=== PATIENT | male | born 1955 | race Caucasian/White ===

== ENCOUNTER 2017-11-10 07:34 | Emergency (ER) | payer BC ==
--- NOTE | 2017-11-10 07:34 | NUR ---
called for triage, no answer
--- NOTE | 2017-11-10 07:43 | NUR ---
Attempted to triage pt, per ER admitting pt left and decided not to be seen.
== END 2017-11-10 07:48 | disposition left against medical advice (07) ==
LOC: ER 07:35
DX: Z53.21 Procedure and treatment not carried out due to patient leaving prior to being seen by health care provider (principal)